=== PATIENT | male | born 1990 | race Caucasian/White ===

== ENCOUNTER 2016-10-05 12:12 | Emergency (ER) | payer OTHER ==
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
--- NOTE | 2016-10-05 14:08 | ED ORDER SUMMARY ---
..... Patient: DAYTON JORDAN JR OrderSheet [facility] VisitID: [id number] [place] [address] 26y, M Registration Date/Time: 10/05/2016 ORDER SHEET Weight: 86.1 kg (stated) Allergies: No Known Drug Allergy GENERAL ORDERS: Chest 2V Urgent (13:27 10/05/2016 EKoroleva P.A.-C) (Ack 13:35 Annelise) (14:07 Annelise) EKG - ER Stat (13:28 10/05/2016 EKoroleva P.A.-C) (Ack 13:35 Annelise) (13:36 Basilio) Vitals (14:08 10/05/2016 EKoroleva P.A.-C) (14:36 SRoberts R.N.) MEDICATION ORDERS: DuoNeb Neb Tx 1 unit dose (NOW) (13:27 10/05/2016 EKoroleva P.A.-C) (Ack 14:29 SRoberts R.N.) (14:29 SRoberts R.N.) Ativan PO 1 mg (HIGH ALERT MEDICATION, NOW) (14:07 10/05/2016 EKoroleva P.A.-C) (Ack 14:29 SRoberts R.N.) (14:36 SRoberts R.N.) IV FLUIDS: ORDER SHEET NOTES: [Electronically signed by Lourdes Bonds R.N. (15:15 10/05/2016)] [Electronically signed by Calli ManningADelio-C (15:21 10/05/2016)] [Electronically locked/signed by Lourdes Bonds R.N. (15:15 10/05/2016)]
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
--- NOTE | 2016-10-05 14:08 | ED ORDER SUMMARY ---
..... Patient: DAYTON JORDAN JR OrderSheet [facility] VisitID: [id number] [place] [address] 26y, M Registration Date/Time: 10/05/2016 ORDER SHEET Weight: 86.1 kg (stated) Allergies: No Known Drug Allergy GENERAL ORDERS: Chest 2V Urgent (13:27 10/05/2016 EKoroleva P.A.-C) (Ack 13:35 Annelise) (14:07 Annelise) EKG - ER Stat (13:28 10/05/2016 EKoroleva P.A.-C) (Ack 13:35 Annelise) (13:36 Basilio) Vitals (14:08 10/05/2016 EKoroleva P.A.-C) (14:36 SRoberts R.N.) MEDICATION ORDERS: DuoNeb Neb Tx 1 unit dose (NOW) (13:27 10/05/2016 EKoroleva P.A.-C) (Ack 14:29 SRoberts R.N.) (14:29 SRoberts R.N.) Ativan PO 1 mg (HIGH ALERT MEDICATION, NOW) (14:07 10/05/2016 EKoroleva P.A.-C) (Ack 14:29 SRoberts R.N.) (14:36 SRoberts R.N.) IV FLUIDS: ORDER SHEET NOTES: [Electronically signed by Lourdes Bonds R.N. (15:15 10/05/2016)] [Electronically signed by Calli ManningADelio-C (15:21 10/05/2016)] [Electronically locked/signed by Lourdes Bonds R.N. (15:15 10/05/2016)]
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
--- NOTE | 2016-10-05 14:20 | DIAGNOSTIC IMAGING REPORT ---
PROCEDURE: XR CHEST 2 VIEW INDICATION: CHEST PAIN TECHNIQUE: PA and lateral view. COMPARISON: Chest x-ray 04/25/2015 FINDINGS: Hyperinflation. Lungs are clear. Cardiovascular structures are normal. Bony thorax is unremarkable. IMPRESSION: 1. Hyperinflation consistent with a history of asthma. 2. No acute changes
--- NOTE | 2016-10-05 15:22 | ED MAR SUMMARY ---
..... Medication Administration Record [facility] [address] [place] [address] Patient: DAYTON JORDAN Visit ID: [id number] 26y, M Weight: 86.1 kg Height/Length: 76 in BMI: 23.1 ALLERGIES: No Known Drug Allergy Given 13:29 10/05/2016 Lourdes Bonds R.N. Medication Administered: DUONEB [NEB TX] (IPRATROPIUM-ALBUTEROL), Dose: 1 unit dose Neb TX. Medication Ordered: DuoNeb Neb Tx 1 unit dose (NOW). Given 14:36 10/05/2016 Lourdes Bonds R.N. Medication Administered: ATIVAN [PO] (LORAZEPAM), Dose: 1 mg PO. Medication Ordered: Ativan PO 1 mg (HIGH ALERT MEDICATION, NOW).
--- NOTE | 2016-10-05 15:22 | ED MAR SUMMARY ---
..... Medication Administration Record [facility] [address] [place] [address] Patient: DAYTON JORDAN Visit ID: [id number] 26y, M Weight: 86.1 kg Height/Length: 76 in BMI: 23.1 ALLERGIES: No Known Drug Allergy Given 13:29 10/05/2016 Lourdes Bonds R.N. Medication Administered: DUONEB [NEB TX] (IPRATROPIUM-ALBUTEROL), Dose: 1 unit dose Neb TX. Medication Ordered: DuoNeb Neb Tx 1 unit dose (NOW). Given 14:36 10/05/2016 Lourdes Bonds R.N. Medication Administered: ATIVAN [PO] (LORAZEPAM), Dose: 1 mg PO. Medication Ordered: Ativan PO 1 mg (HIGH ALERT MEDICATION, NOW).
--- NOTE | 2016-10-05 15:22 | ED DISCHARGE INSTRUCTIONS ---
Patient: DAYTON JORDAN JR General Instructions [facility] VisitID: [id number] [place] [address] 26y, M Registration Date/Time: 10/05/2016 Mild persistent asthma. No acute exacerbation. Anxiety reaction. INSTRUCTIONS Warnings: Further evaluation is necessary. SEDATIVE MEDICATION: You were given sedative medication during your visit. Do not drive or operate dangerous machinery. Follow-up: Follow up with your doctor in three days. ADDITIONAL INFORMATION Asthma [Adult] Asthma is a disease where the small air passages within the lung go into spasm and restrict the flow of air. Inflammation and swelling of the airways cause further restriction. During an acute asthma attack, these factors cause difficulty breathing, wheezing, cough and chest tightness. An asthma attack can be triggered by many things. Common triggers include the common cold, bronchitis, pneumonia, irritants such as smoke or pullutants in the air, emotional upset and heavy exercise. Inmany adults with asthma, allergies todust, mold, pollen and animal dander can cause an asthma attack. Skipping doses of daily asthma medicine can also bring on an asthma attack. Asthma can be controlled with proper medicines and decreased exposure to known allergens. Home Care: Take prescribed medicine exactly at the times advised. If you have a hand-held inhaler or aerosol breathing medicine, do not use it more than once every four hours, unless told to do so. (If you need this medicine more than every four hours, you may need to return to the Emergency Room.) If prescribed an antibiotic or prednisone, take all of the medicine even if you are feeling better after a few days. Do not smoke. Avoid being exposed to the smoke of others. Some persons with asthma have worsening of their symptoms when they take aspirin and non-steroidal medicines like ibuprofen (Motrin, Advil) and naproxen (Aleve, Naprosyn). Talk to your doctor if you think this may apply to you. Acetaminophen (Tylenol)should be safe to use. Follow Up with your doctor, or as advised by our staff. Always bring all of your current medicines with you for your doctor to see. If you do not already have one, talk to your doctor about developing a personalized "Asthma Action Plan." [NOTE: A pneumococcal vaccine and yearly flu shot (every fall) are recommended. Ask your doctor about this.] Get Prompt Medical Attention if any of the following occur: Increased wheezing or shortness of breath Need to use your inhalers more often than usual without relief Fever of 100.4F (38C) or higher, or as directed by your healthcare provider Coughing up lots of dark-colored or bloody sputum (mucus) Chest pain with each breath You do not start to improve within 24 hours Call 911 If Any Of The Following Occur : Trouble walking or talking because of shortness of breath If you use a peak flow meter andyou are still in the red zone (less than 50 percent) 15 minutes after using inhaler medication Lips or fingernails turning hickey or blue Stress Reaction Anxiety is the feeling we all get when we think something bad might happen. It is a normal response to stress and usually causes only a mild reaction. When anxiety becomes more severe, emotions may interfere with daily life. In some cases, you may not even be aware of what it is youre anxious about! During an anxiety reaction, you may feel like you are helpless, nervous, depressed or irritable. Your body may show signs of anxiety in many ways. You may experience dry mouth, shakiness, dizziness, weakness, trouble breathing, chest pressure, headache, nausea, diarrhea, tiredness, inability to sleep or sexual problems. Home Care: 1) Try to locate the sources of stress in your life. They may not be obvious! These may include: -- Daily hassles of life which pile up (traffic jams, missed appointments, car troubles, etc.) -- Major life changes, both good (new baby, job promotion) and bad (loss of job, loss of loved one) -- Overload: feeling that you have too many responsibilities and can't take care of all of them at once -- Feeling helpless, feeling that your problems are beyond what youre able to solve 2) Notice how your body reacts to stress. Learn to listen to your body signals. This will help you take action before the stress becomes severe. 3) When you can, do something about the source of your stress. (Avoid hassles, limit the amount of change that happens in your life at one time and take a break when you feel overloaded). 4) Unfortunately, many stressful situations cannot be avoided. It is necessary to learn HOW TO MANAGE STRESS better. There are many proven methods that will reduce your anxiety. These include simple things like exercise, good nutrition and adequate rest. Also, there are certain techniques that are helpful: relaxation and breathing exercises, visualization, biofeedback and meditation. For more information about this, consult your doctor or go to a local bookstore and review the many books and tapes available on this subject. Follow Up If you feel that your anxiety is not responding to self-help measures, contact your doctor or make an appointment with a counselor. Get Prompt Medical Attention if any of the following occur: -- Your symptoms get worse -- Chest pain or trouble breathing -- Severe headache not relieved by rest and mild pain reliever -- Rapid or irregular heartbeat, fainting You have been given the following additional information: Asthma, Acute (Adult) Anxiety Reaction (Electronically signed by Calli Manning P.A.-C 10/05/2016 15:21)
--- NOTE | 2016-10-05 15:22 | ED MED RECONCILIATION SUMMARY ---
Patient: DAYTON JORDAN JR Medication Reconciliation Report [facility] VisitID: [id number] [address] [place] [address] 26y, M Registration Date/Time: 10/05/2016 Weight: 86.1 kg Height/Length: 76 in. BMI: 23.1 ALLERGIES: No Known Drug Allergy The patient's Home Medications are listed below: THE FOLLOWING MEDICATIONS NEED TO BE RECONCILED: Albuterol Sulfate Inhalation, PRN ClonazePAM Oral 1 mg, at bedtime The source(s) of the original Home Medication information: patient The following Medications were given to the patient in the Emergency Department: Duoneb [Neb Tx] Neb TX 1 unit dose, administered: 10/05/2016 1:29:00 PM Ativan [PO] PO 1 mg, administered: 10/05/2016 2:36:00 PM The following Medications were prescribed to the patient: None.
--- NOTE | 2016-10-05 15:22 | ED MED RECONCILIATION SUMMARY ---
Patient: DAYTON JORDAN JR Medication Reconciliation Report [facility] VisitID: [id number] [address] [place] [address] 26y, M Registration Date/Time: 10/05/2016 Weight: 86.1 kg Height/Length: 76 in. BMI: 23.1 ALLERGIES: No Known Drug Allergy The patient's Home Medications are listed below: THE FOLLOWING MEDICATIONS NEED TO BE RECONCILED: Albuterol Sulfate Inhalation, PRN ClonazePAM Oral 1 mg, at bedtime The source(s) of the original Home Medication information: patient The following Medications were given to the patient in the Emergency Department: Duoneb [Neb Tx] Neb TX 1 unit dose, administered: 10/05/2016 1:29:00 PM Ativan [PO] PO 1 mg, administered: 10/05/2016 2:36:00 PM The following Medications were prescribed to the patient: None.
== END 2016-10-05 14:35 | disposition home or self-care (01) ==
LOC: ED SRH 12:12
DX: J45.30 Mild persistent asthma, uncomplicated (principal); F41.1 Generalized anxiety disorder; I10 Essential (primary) hypertension; Z79.899 Other long term (current) drug therapy; F17.210 Nicotine dependence, cigarettes, uncomplicated